=== PATIENT | female | born 1990 | race Two or more races ===

== ENCOUNTER 2021-10-23 10:34 | Emergency (ER) | payer OTHER ==
[2021-10-23 11:16] VITALS: BP 100/60; PULSE 74; TEMP 98.3; BMI 32.8
== END 2021-10-23 11:27 | disposition home or self-care (01) ==
LOC: FER 10:34
DX: S93.601A Unspecified sprain of right foot, initial encounter (principal); S93.401A Sprain of unspecified ligament of right ankle, initial encounter; W10.9XXA Fall (on) (from) unspecified stairs and steps, initial encounter
CPT/HCPCS: 73610-TC-RT-FY; 73630-TC-RT-FY; 99283-25